=== PATIENT | female | born 1965 | race Caucasian/White ===

== ENCOUNTER → 2016-11-10 | Outpatient (CLI) | payer OTHER ==
[~2016-11-10] MED LIST: 12 HOUR DECONG120 M1 PO; ALPRAZOLAM0.25 M2 PO; ANTIVERT25 MG PO; ATARAX,VISTARIL25 MG PO; AZITHROMYCIN250 MG1 PO; BENICAR20 MG PO; BENICAR5 MG PO; CLINDAMYCIN HC300 MG PO; CRESTOR20 MG PO; DAILY VITAMIN1 EAC8 PO; EFFEXOR37.5 MG PO; FENOFIBRATE120 MG PO; FENOFIBRATE54 M1 PO; FLEXERIL10 MG PO; FLONASE16 G1 BOTH NARES; LEVOTHROID88 MCG PO; LEVOTHYROXINE50 MCG PO; LEVOXYL25 MCG PO; LEVOXYL88 MCG PO; LOFIBRA54 MG PO; MECLIZINE HCL25 MG PO; NAPROXEN500 MG PO; NASACORT10.8 ML BOTH NARES; NEXIUM40 MG; NEXIUM40 MG PO; PANTOPRAZOLE SO40 MG PO; PREDNISONE20 MG PO; PRILOSEC20 MG PO; PROBIOTIC1 EAC1 PO; SIMVASTATIN20 MG PO; SYNTHROID25 MCG PO; TRAMADOL HCL50 MG PO; TRICOR145 MG PO; TYLENOL REGULA325 MG PO; ULTRACET1 TABLET PO; ULTRAM50 MG PO; VALIUM5 MG PO; VITAMIN D31000 UNI2 PO; XANAX0.25 MG PO; XANAX0.5 MG PO; ZANTAC150 MG PO; ZITHROMAX Z-PA250 MG PO; ZOFRAN4 MG PO; ZYRTEC10 M1 PO; ZYRTEC10 M2 PO
== END | disposition home or self-care (01) ==
LOC: RAD 11-08 10:00
DX: J32.1 Chronic frontal sinusitis (principal); J32.2 Chronic ethmoidal sinusitis
CPT/HCPCS: 70486

== ENCOUNTER 2016-12-02 05:15 | Day surgery (SDC) | payer OTHER ==
[~2016-12-02] VITALS: Ht 152.4 cm; Wt 70.8 kg
[~2016-12-02 05:15] MED LIST changes: +CYANOCOBALAM1000 MCG PO
[2016-12-02 06:07] VITALS: BP 132/66
[2016-12-02 11:04] VITALS: BP 128/76
[2016-12-02 11:49] VITALS: BP 118/64
== END 2016-12-02 11:57 | disposition home or self-care (01) ==
LOC: SDC 05:15
DX: J32.1 Chronic frontal sinusitis (principal); J32.2 Chronic ethmoidal sinusitis; J32.0 Chronic maxillary sinusitis; J33.8 Other polyp of sinus; I10 Essential (primary) hypertension; E03.9 Hypothyroidism, unspecified; K21.9 Gastro-esophageal reflux disease without esophagitis; F17.200 Nicotine dependence, unspecified, uncomplicated; Z88.6 Allergy status to analgesic agent; Z88.0 Allergy status to penicillin; Z88.2 Allergy status to sulfonamides
CPT/HCPCS: 88305; 93005; J0330; J1100; J2405; J2765; J3010

== ENCOUNTER 2017-06-23 23:26 | Emergency (ER) | payer OTHER ==
[~2017-06-23] VITALS: Ht 152.4 cm; Wt 73.8 kg
[2017-06-24 01:55] LABS: HEMATOCRIT 40.3 % (36.0-46.0); MCH 31.4 PG (29.0-34.0); MCHC 33.3 G/DL (30.0-36.0); MCV 94.4 FL (83-99); MEAN PLAT.VOLUME 13.2 uM^3 (9.5-12.4); PLATELET COUNT 130 K/uL (156-360); RBC DIS.WIDTH-CV 13.4 % (11.8-14.6); RBC DIS.WIDTH-SD 46.3 % (39-53); RED BLOOD COUNT 4.27 M/uL (3.80-5.20); WHITE BLOOD COUNT 10.2 K/uL (4.1-10.2)
[2017-06-24 02:06] LABS: CHLORIDE 109 mEq/L (99-109); POTASSIUM 3.5 mEq/L (3.7-5.4); SODIUM 143 mEq/L (136-147)
[2017-06-24 02:07] LABS: GLUCOSE 111 mg/dL (70-99)
[2017-06-24 02:09] LABS: ANION GAP 11 MEQ/L (2-14)
[2017-06-24 02:11] LABS: GFR ESTIMATE (CALCULATED) > 59 mL/min/
[2017-06-24 02:12] LABS: UREA NITROGEN (BUN) 10 mg/dL (9-23)
[2017-06-24 02:17] LABS: TROP-I INTERPRETATION NEGATIVE; TROPONIN-I < 0.01 ng/mL (0.0-0.30)
[2017-06-24 02:19] LABS: QUANTITATIVE HCG < 4.0 MIU/ML
[2017-06-24 02:45] LABS: INFLUENZA A VIRAL ANTIGEN NEGATIVE; INFLUENZA B VIRAL ANTIGEN NEGATIVE
[2017-06-24] MEDS ORDERED: DOXYCYCLINE HY100 MG PO (03:09)
[2017-06-24] MEDS ORDERED: PROAIR HFA8.5 GM IH (03:09)
[2017-06-24 03:28] VITALS: BP 121/87
== END 2017-06-24 03:29 | disposition home or self-care (01) ==
LOC: EME 23:26
PROVIDERS: Emergency Medicine
DX: J01.90 Acute sinusitis, unspecified (principal); E78.5 Hyperlipidemia, unspecified; I10 Essential (primary) hypertension; K21.9 Gastro-esophageal reflux disease without esophagitis; F17.200 Nicotine dependence, unspecified, uncomplicated
CPT/HCPCS: 71010; 80048; 84484; 84702; 85027; 87502; 87651 90; 93005; 94640; 99281; 99284; J1100

== ENCOUNTER 2017-06-27 17:08 | Emergency (ER) | payer OTHER ==
[~2017-06-27] VITALS: Ht 152.4 cm; Wt 71.8 kg
[~2017-06-27 17:08] MED LIST changes: +DOXYCYCLINE HY100 MG PO; +PROAIR HFA8.5 GM IH
[2017-06-27] MEDS ORDERED: AZITHROMYCIN250 MG PO (17:48)
[2017-06-27 18:16] VITALS: BP 132/109
== END 2017-06-27 18:21 | disposition home or self-care (01) ==
LOC: EME 17:08
DX: J32.9 Chronic sinusitis, unspecified (principal); R11.0 Nausea; E78.5 Hyperlipidemia, unspecified; I10 Essential (primary) hypertension; K21.9 Gastro-esophageal reflux disease without esophagitis; F17.200 Nicotine dependence, unspecified, uncomplicated
CPT/HCPCS: 80048; 80076; 83690; 85027; 86850; 86900; 86901; 99281; 99284

== ENCOUNTER 2017-07-17 14:41 | Emergency (ER) | payer OTHER ==
[~2017-07-17] VITALS: Ht 152.4 cm; Wt 72.4 kg
[~2017-07-17 14:41] MED LIST changes: +AZITHROMYCIN250 MG PO
[2017-07-17 15:19] LABS: ADD MIUA? YES; BILIRUBIN NEGATIVE; BLOOD MODERATE; COLOR YELLOW ((YELLOW)); GLUCOSE (STRIP) NEGATIVE; KETONES NEGATIVE; LEUKOCYTES NEGATIVE; NITRITE NEGATIVE; PROTEIN (STRIP) NEGATIVE; UROBILINOGEN 0.2 MG/DL (0.2-1.0)
[2017-07-17 15:31] LABS: BACTERIA NONE SEEN /HPF; CASTS NONE SEEN /LPF; CRYSTALS NONE SEEN; EPITHELIAL CELLS RARE /HPF; MUCUS NONE SEEN /LPF; RED BLOOD CELLS RARE /HPF (0-5); UCUL ADDED? NO; WHITE BLOOD CELLS RARE /HPF (0-5)
[2017-07-17 16:35] VITALS: BP 156/87
== END 2017-07-17 16:48 | disposition home or self-care (01) ==
LOC: EME 14:41
DX: B37.3 Candidiasis of vulva and vagina (principal); E78.5 Hyperlipidemia, unspecified; I10 Essential (primary) hypertension; K21.9 Gastro-esophageal reflux disease without esophagitis; F41.9 Anxiety disorder, unspecified; F17.200 Nicotine dependence, unspecified, uncomplicated; Z88.8 Allergy status to other drugs, medicaments and biological substances
CPT/HCPCS: 81003; 99281; 99283

== ENCOUNTER 2017-11-17 05:40 | Emergency (ER) | payer OTHER ==
[~2017-11-17] VITALS: Ht 152.4 cm; Wt 71.1 kg
[2017-11-17 07:34] LABS: BASOPHIL (%) 0.4 % (0-1); EOSINOPHIL (%) 1.4 % (0-5); EOSINOPHIL COUNT 0.1 K/uL (0-0.3); HEMATOCRIT 40.9 % (36.0-46.0); HEMOGLOBIN 13.8 G/DL (11.9-15.5); IMMATURE GRANULOCYTE (%) 0.4 % (0.0-0.7); LYMPHOCYTE COUNT 1.5 K/uL (1.0-2.8); MCH 31.8 PG (29.0-34.0); MCHC 33.7 G/DL (30.0-36.0); MCV 94.2 FL (83-99); MONOCYTE (%) 4.2 % (3-12); MONOCYTE COUNT 0.2 K/uL (0-0.8); NEUTROPHIL (%) 66.6 % (45-76); NEUTROPHIL COUNT 3.8 K/uL (1.8-6.4); PLATELET COUNT 154 K/uL (156-360); RBC DIS.WIDTH-CV 13.2 % (11.8-14.6); RBC DIS.WIDTH-SD 45.3 % (39-53); RED BLOOD COUNT 4.34 M/uL (3.80-5.20); WHITE BLOOD COUNT 5.7 K/uL (4.1-10.2)
[2017-11-17 08:11] LABS: CHLORIDE 107 mEq/L (99-109); POTASSIUM 4.1 mEq/L (3.7-5.4); SODIUM 142 mEq/L (136-147)
[2017-11-17 08:13] LABS: GLUCOSE 102 mg/dL (70-99); TROP-I INTERPRETATION NEGATIVE; TROPONIN-I 0.01 ng/mL (0.0-0.30)
[2017-11-17 08:14] LABS: TOTAL PROTEIN 6.4 g/dL (6.4-8.3)
[2017-11-17 08:15] LABS: TOTAL BILIRUBIN 0.3 mg/dL (0.0-1.0)
[2017-11-17 08:17] LABS: ALKALINE PHOSPHATASE 51 IU/L (3-129); CREATININE 0.9 mg/dL (0.6-1.3); GFR ESTIMATE (CALCULATED) > 59 mL/min/
[2017-11-17 08:18] LABS: UREA NITROGEN (BUN) 12 mg/dL (9-23)
[2017-11-17 08:19] LABS: AST (GOT) 14 IU/L (2-34)
[2017-11-17 08:20] LABS: ALT (GPT) 11 IU/L (3-49)
[2017-11-17 08:21] LABS: LIPASE 20 U/L (1.0-51.0)
[2017-11-17] MEDS ORDERED: CARAFATE1 GM PO (10:23)
[2017-11-17 10:50] VITALS: BP 141/83
== END 2017-11-17 11:04 | disposition home or self-care (01) ==
LOC: EME 05:40
PROVIDERS: Emergency Medicine
DX: K29.70 Gastritis, unspecified, without bleeding (principal); K21.9 Gastro-esophageal reflux disease without esophagitis; E78.5 Hyperlipidemia, unspecified; I10 Essential (primary) hypertension; F17.200 Nicotine dependence, unspecified, uncomplicated; F41.9 Anxiety disorder, unspecified; Z88.0 Allergy status to penicillin; Z88.6 Allergy status to analgesic agent
CPT/HCPCS: 80053; 83605; 83690; 84484; 85025; 93005; 99281; 99284

== ENCOUNTER 2017-12-03 09:15 | Emergency (ER) | payer OTHER ==
[~2017-12-03] VITALS: Ht 152.4 cm; Wt 70.7 kg
[~2017-12-03 09:15] MED LIST changes: +CARAFATE1 GM PO
[2017-12-03 09:30] VITALS: BP 159/100
== END 2017-12-03 13:12 | disposition home or self-care (01) ==
LOC: EME 09:15
DX: J02.9 Acute pharyngitis, unspecified (principal); Z88.0 Allergy status to penicillin; Z88.6 Allergy status to analgesic agent; Z88.1 Allergy status to other antibiotic agents; Z88.8 Allergy status to other drugs, medicaments and biological substances
CPT/HCPCS: 87651 90; 99281; 99283

== ENCOUNTER 2017-12-11 10:25 | Emergency (ER) | payer OTHER ==
[~2017-12-11] VITALS: Ht 152.4 cm; Wt 69.9 kg
[2017-12-11 11:21] LABS: BASOPHIL (%) 0.2 % (0-1); EOSINOPHIL (%) 1.8 % (0-5); EOSINOPHIL COUNT 0.1 K/uL (0-0.3); HEMATOCRIT 40.1 % (36.0-46.0); HEMOGLOBIN 13.6 G/DL (11.9-15.5); IMMATURE GRANULOCYTE (%) 0.4 % (0.0-0.7); LYMPHOCYTE (%) 35.1 % (15-42); LYMPHOCYTE COUNT 1.8 K/uL (1.0-2.8); MCH 31.7 PG (29.0-34.0); MCHC 33.9 G/DL (30.0-36.0); MCV 93.5 FL (83-99); MONOCYTE (%) 4.8 % (3-12); MONOCYTE COUNT 0.2 K/uL (0-0.8); NEUTROPHIL (%) 57.7 % (45-76); NEUTROPHIL COUNT 2.9 K/uL (1.8-6.4); PLATELET COUNT 157 K/uL (156-360); RBC DIS.WIDTH-CV 13.1 % (11.8-14.6); RBC DIS.WIDTH-SD 44.8 % (39-53); RED BLOOD COUNT 4.29 M/uL (3.80-5.20)
[2017-12-11 11:29] LABS: D-DIMER ELISA < 150.00 ng/mLDDU (<230)
[2017-12-11 11:32] LABS: CHLORIDE 106 mEq/L (99-109); SODIUM 141 mEq/L (136-147)
[2017-12-11 11:34] LABS: GLUCOSE 93 mg/dL (70-99)
[2017-12-11 11:38] LABS: CREATININE 0.9 mg/dL (0.6-1.3); GFR ESTIMATE (CALCULATED) > 59 mL/min/; UREA NITROGEN (BUN) 10 mg/dL (9-23)
[2017-12-11 11:42] LABS: TROP-I INTERPRETATION NEGATIVE; TROPONIN-I < 0.01 ng/mL (0.0-0.30)
[2017-12-11 13:06] LABS: TROP-I INTERPRETATION NEGATIVE; TROPONIN-I < 0.01 ng/mL (0.0-0.30)
[2017-12-11 14:09] VITALS: BP 139/85
== END 2017-12-11 14:10 | disposition home or self-care (01) ==
LOC: EME 10:25
PROVIDERS: Emergency Medicine
DX: R00.2 Palpitations (principal); I10 Essential (primary) hypertension; E78.5 Hyperlipidemia, unspecified; K21.9 Gastro-esophageal reflux disease without esophagitis; F41.9 Anxiety disorder, unspecified; F17.200 Nicotine dependence, unspecified, uncomplicated; Z90.49 Acquired absence of other specified parts of digestive tract; Z88.0 Allergy status to penicillin; Z88.6 Allergy status to analgesic agent; Z88.8 Allergy status to other drugs, medicaments and biological substances
CPT/HCPCS: 71045; 80048; 84484; 85025; 85379; 93005; 99281; 99283